=== PATIENT | female | born 1990 | race African-American/Black ===

== ENCOUNTER 2016-12-10 18:28 | Emergency (ER) | payer MEDICAID ==
[~2016-12-10] VITALS: Ht 170.2 cm; Wt 81.0 kg
[2016-12-10 18:29] VITALS: BP 164/96; PULSE 72; RESP 16; TEMP 97.9; O2SAT 98
[2016-12-10] MEDS ORDERED: KETOROLAC TROMETHAMINE 30 MG/ML (IVP) VIAL IV PUSH ONE (19:00)
[2016-12-10 19:07] LABS: AUTOMATED NEUTROPHIL # 2.5 TH/MM3 (1.8-7.7); BASOPHIL % 0.6 % (0.0-2.0); EOSINOPHIL % 0.7 % (0.0-4.0); HEMATOCRIT 34.8 % (35.0-46.0); HEMO FLAGS DIFF FINAL; LYMPH % 46.3 % (9.0-44.0); LYMPHOCYTE # 2.8 TH/MM3 (1.0-4.8); MEAN CELL VOLUME 87.5 FL (80.0-100.0); MEAN CORPUSCULAR HGB CONC 33.1 % (32.0-36.0); MONO % 11.5 % (0.0-8.0); NEUT % 40.9 % (16.0-70.0); PLATELET COUNT 168 TH/MM3 (150-450); RED BLOOD COUNT 3.98 MIL/MM3 (4.00-5.30); RED CELL DISTRIBUTION WIDTH 14.5 % (11.6-17.2); WHITE BLOOD COUNT 6.1 TH/MM3 (4.0-11.0)
[2016-12-10 19:31] LABS: ANION GAP 7 MEQ/L (5-15); AST (GOT) 26 U/L (15-37); BICARBONATE 26.7 MEQ/L (21.0-32.0); BLOOD UREA NITROGEN 12 MG/DL (7-18); CHLORIDE 105 MEQ/L (98-107); GLOMERULAR FILTRATION RATE 90 ML/MIN (>89); POTASSIUM 3.4 MEQ/L (3.5-5.1); SODIUM (NA) 139 MEQ/L (136-145)
[2016-12-10 19:36] LABS: ALKALINE PHOSPHATASE 57 U/L (45-117); ALT (GPT) 29 U/L (10-53); TOTAL BILIRUBIN ADULT 0.2 MG/DL (0.2-1.0)
--- NOTE | 2016-12-10 20:12 | RADRPT ---
EXAM DATE/TIME: 12/10/2016 19:25 [facility] COMPARISON: No previous studies available for comparison. INDICATIONS : Left sided chest pain. MEDICAL HISTORY : None. SURGICAL HISTORY : None. ENCOUNTER: Initial ACUITY: 2 weeks PAIN SCORE: 6/10 LOCATION: Left chest FINDINGS: PA and lateral views of the chest demonstrate the lungs to be symmetrically aerated without evidence of mass, infiltrate or effusion. The cardiomediastinal contours are unremarkable. Osseous structure s are intact. There is a thoracic dextroscoliosis. CONCLUSION: 1. No active disease. Thoracic dextroscoliosis. Skyler Gardner MD on December 10, 2016 at 20:09 Board Certified Radiologist. This report was verified electronically.
--- NOTE | 2016-12-10 20:20 | PD ---
HPI Chief Complaint: Chest Pain Time Seen by Provider: 18:40 Travel History International Travel<30 days: No Contact w/Intl Traveler<30days: No Traveled to known affect area: No History of Present Illness HPI Patient is a 26 year old female who comes in complaining of left sided chest pain. She says the pain has been coming and going for the past 2 weeks. She does report being sick with "flu-like symptoms" last week, but these have resolved. She has occasional cough. She denies fever or chills. She denies any shortness of breath. She says the symptoms seem to be coming on at work, but she can't really relate them to any sort of action. She denies any drug use , smoking, or family history of early cardiac . She says she is nervous because she has children. She denies any recent travel, leg pain or swelling. PFSH Past Medical History Medical History: Denies Significant Hx Diminished Hearing: No Tetanus Vaccination: > 5 Years Influenza Vaccination: No ?: Not LMP: 12/04/16 : 3 Past Surgical History Section: Yes Social History Alcohol Use: No Tobacco Use: No Substance Use: No Allergies-Medications (Allergen,Severity, Reaction): Coded Allergies: No Known Allergies (Unverified , 12/10/16) Reported Meds & Prescriptions Reported Meds & Active Scripts Active No Active Prescriptions or Reported Medications Review of Systems Except as stated in HPI: all other systems reviewed are Neg General / Constitutional: No: Fever, Chills HENT: No: Headaches, Lightheadedness Cardiovascular: Positive: Chest Pain or Discomfort Respiratory: Positive: Cough, No: Shortness of Breath Gastrointestinal: No: Nausea, Vomiting Musculoskeletal: No: Myalgias, Pain Skin: No Rash, No Change in Pigmentation Neurologic: No: Weakness, Dizziness Physical Exam Narrative GENERAL: Awake and alert, in no acute distress. SKIN: Focused skin assessment warm/dry. HEAD: Atraumatic. Normocephalic. EYES: Pupils equal and round. No scleral icterus. ENT: Mucous membranes pink and moist. NECK: Trachea midline. No JVD. CARDIOVASCULAR: Regular rate and rhythm. No murmur appreciated. RESPIRATORY: No accessory muscle use. Clear to auscultation. Breath sounds equal bilaterally. GASTROINTESTINAL: Abdomen soft, non-tender, nondistended. MUSCULOSKELETAL: No obvious deformities. No clubbing. No cyanosis. No edema. No calf tenderness. NEUROLOGICAL: Awake and alert. No obvious cranial nerve deficits. Motor grossly within normal limits. Normal speech. PSYCHIATRIC: Appropriate mood and affect; insight and judgment normal. Data Data Last Documented VS Vital Signs Date Time Temp Pulse Resp B/P Pulse Ox O2 Delivery O2 Flow Rate FiO2 12/10/16 18:51 90 16 99 Room Air 12/10/16 18:29 97.9 164/96 Orders Electrocardiogram (12/10/16 ) Complete Blood Count With Diff (12/10/16 18:53) Comprehensive Metabolic Panel (12/10/16 18:53) Troponin I (12/10/16 18:53) D-Dimer (12/10/16 18:53) Ed Urine Pregnancytest Poc (12/10/16 18:53) Chest, Pa & Lat (12/10/16 ) Ketorolac Inj (Toradol Inj) (12/10/16 19:00) Labs Laboratory Tests Test 12/10/16 19:00 White Blood Count 6.1 TH/MM3 Red Blood Count 3.98 MIL/MM3 Hemoglobin 11.5 GM/DL Hematocrit 34.8 % Mean Corpuscular Volume 87.5 FL Mean Corpuscular Hemoglobin 29.0 PG Mean Corpuscular Hemoglobin 33.1 % Concent Red Cell Distribution Width 14.5 % Platelet Count 168 TH/MM3 Mean Platelet Volume 11.5 FL Neutrophils (%) (Auto) 40.9 % Lymphocytes (%) (Auto) 46.3 % Monocytes (%) (Auto) 11.5 % Eosinophils (%) (Auto) 0.7 % Basophils (%) (Auto) 0.6 % Neutrophils # (Auto) 2.5 TH/MM3 Lymphocytes # (Auto) 2.8 TH/MM3 Monocytes # (Auto) 0.7 TH/MM3 Eosinophils # (Auto) 0.0 TH/MM3 Basophils # (Auto) 0.0 TH/MM3 CBC Comment DIFF FINAL Differential Comment D-Dimer Quantitative (PE/DVT) 0.37 MG/L FEU Sodium Level 139 MEQ/L Potassium Level 3.4 MEQ/L Chloride Level 105 MEQ/L Carbon Dioxide Level 26.7 MEQ/L Anion Gap 7 MEQ/L Blood Urea Nitrogen 12 MG/DL Creatinine 0.91 MG/DL Estimat Glomerular Filtration 90 ML/MIN Rate Random Glucose 75 MG/DL Calcium Level 9.1 MG/DL Total Bilirubin 0.2 MG/DL Aspartate Amino Transf 26 U/L (AST/SGOT) Alanine Aminotransferase 29 U/L (ALT/SGPT) Alkaline Phosphatase 57 U/L Troponin I LESS THAN 0.02 NG/ML Total Protein 8.4 GM/DL Albumin 3.7 GM/DL MDM Medical Decision Making Medical Screen Exam Complete: Yes Emergency Medical Condition: Yes Interpretation(s) ECG shows normal sinus rhythm at 90, nonspecific T-wave changes in lead 3 with T -wave inversions. No ST elevation or depression. Differential Diagnosis Pneumonia versus pneumothorax versus costochondritis versus bronchitis versus ACS (unlikely) Narrative Course Patient is a 26-year-old female who comes in complaining of left-sided chest pain on and off for 2 weeks. Exam shows no acute abnormalities. IV established , labs sent. Labs are within normal limits. Troponin and d-dimer are negative. ECG does not show any signs of ischemia. Patient has no risk factors for cardiac issues. Patient advised she should follow-up with her primary doctor. Advised she may need to see a statistical modeler for further testing if her pain persists. Advised it is very unlikely at this point that she is having a cardiac event. Advised that if her symptoms worsen at any time she should return to the ED. Patient is comfortable with this plan at this time. Advised to continue to refrain from any smoking or drug use. Diagnosis Primary Impression: Chest pain Qualified Code: R07.9 - Chest pain, unspecified type Patient Instructions: Costochondritis (ED), General Instructions Additional Instructions: Follow up with your primary doctor. If you have any worsening symptoms, return to the ED. You can take Ibuprofen for pain. Scripts No Active Prescriptions or Reported Meds Disposition: 01 DISCHARGE HOME Condition: Stable Edda Jerez MD Dec 10, 2016 20:20
--- NOTE | 2016-12-11 14:04 | EKG ---
Date Performed: 12/10/2016 Time Performed: 18:47:41 PTAGE: 26 years EKG: WITHIN NORMAL LIMITS NORMAL ECG NO PREVIOUS TRACING DOCTOR: Omari Casas Interpretating Date/Time 12/11/2016 14:04:09
== END 2016-12-10 21:02 | disposition home or self-care (01) ==
LOC: NEPD 18:28
DX: R07.9 Chest pain, unspecified (principal); R05 Cough
CPT/HCPCS: 71020; 80053; 84484; 84703; 85025; 85379; 93005; 96374; 99285; J1885

== ENCOUNTER 2017-02-20 | Emergency (ER) | payer MEDICAID ==
[~2017-02-20] VITALS: Ht 170.2 cm; Wt 90.0 kg
[2017-02-20 00:02] VITALS: BP 142/84; PULSE 96; RESP 16; TEMP 98.1; O2SAT 98
[2017-02-20] MEDS ORDERED: PREV15CA15 PO (02:32)
[2017-02-20] MEDS ORDERED: OMEP40CA2 PO (02:55)
--- NOTE | 2017-02-20 02:55 | PD ---
HPI Chief Complaint: ENT Complaint Time Seen by Provider: 02:30 Travel History International Travel<30 days: No Contact w/Intl Traveler<30days: No Traveled to known affect area: No History of Present Illness HPI Patient is a 27-year-old female presenting to emergency for evaluation of 1 week of dysphasia. Patient states that she is unable to swallow solid foods without drinking a lot of fluids. She has been eating soft foods since that time. She denies any sore throat, fever, chills, shortness of breath. She denies any alcohol use or indigestion. She has been tolerating fluids as well as soft foods. She went to an urgent care center yesterday and was told to take Prevacid follow-up with the GI doctor. [facility] Past Medical History Anemia: Yes Diminished Hearing: No Tetanus Vaccination: Unknown Influenza Vaccination: No ?: Not LMP: 01/28/19 : 3 Past Surgical History Section: Yes Social History Alcohol Use: No Tobacco Use: No Substance Use: No Allergies-Medications (Allergen,Severity, Reaction): Coded Allergies: No Known Allergies (Unverified , 12/10/16) Reported Meds & Prescriptions Reported Meds & Active Scripts Active Reported Prevacid (Lansoprazole) 15 Mg Capdr 15 Mg PO DAILY Review of Systems Except as stated in HPI: all other systems reviewed are Neg Gastrointestinal: Positive: Dysphagia Physical Exam Narrative GENERAL: Well-developed, well-nourished, alert female. Resting comfortably in no acute distress. SKIN: Focused skin assessment warm/dry. HEAD: Atraumatic. Normocephalic. EYES: Pupils equal and round. No scleral icterus. No injection or drainage. ENT: No nasal bleeding or discharge. Mucous membranes pink and moist. Airway is patent NECK: Trachea midline. No JVD. CARDIOVASCULAR: Regular rate and rhythm. No murmur appreciated. RESPIRATORY: No accessory muscle use. Clear to auscultation. Breath sounds equal bilaterally. No stridor noted, no wheezing, rhonchi, rales noted. GASTROINTESTINAL: Abdomen soft, non-tender, nondistended. Hepatic and splenic margins not palpable. MUSCULOSKELETAL: No obvious deformities. No clubbing. No cyanosis. No edema. NEUROLOGICAL: Awake and alert. No obvious cranial nerve deficits. Motor grossly within normal limits. Normal speech. PSYCHIATRIC: Appropriate mood and affect; insight and judgment normal. Data Data Last Documented VS Vital Signs Date Time Temp Pulse Resp B/P Pulse Ox O2 Delivery O2 Flow Rate FiO2 02/20/17 00:02 98.1 96 16 142/84 98 Room Air MDM Medical Decision Making Medical Screen Exam Complete: Yes Emergency Medical Condition: Yes Interpretation(s) Vital Signs Date Time Temp Pulse Resp B/P Pulse Ox O2 Delivery O2 Flow Rate FiO2 02/20/17 00:02 98.1 96 16 142/84 98 Room Air Differential Diagnosis Esophageal stricture versus GERD versus esophagitis versus other Narrative Course Patient is a 27-year-old female presenting with 1 week of dysphasia. She has no history of the same, no regular alcohol use, no tobacco use, no history of indigestion. His vital signs are stable, she is well oxygenated on room air. Physical examination is unremarkable, Hemoccult was negative for blood. Discussed with my attending physician patient's presentation as well as physical exam findings. Patient will be given prescription for omeprazole, she is encouraged to follow up with a GI doctor as previously recommended. She was given strict return precautions. Patient is agreeable to plan, she verbalizes understanding of discharge instructions as well as need for follow-up. Patient is stable for discharge. [facility] Point of Care Fecal Specimen Occult Blood: Negative Diagnosis Primary Impression: Other dysphagia Referrals: Care Assistant 2 days Patient Instructions: Dysphagia (ED), General Instructions Additional Instructions: Maintain a soft diet Follow-up with GI doctor Return to emergency department immediately for any new or worsening symptoms Med/Other Pt SpecificInfo: Prescription(s) given Scripts Omeprazole 40 Mg Cap40 Mg PO DAILY #30 CAP Ref 0 Prov:Chantelle Thompson 02/20/17 Disposition: 01 DISCHARGE HOME Condition: Stable Chantelle Thompson Feb 20, 2017 02:55
[2017-02-21] MEDS ORDERED: [UNRECOGNIZED DRUG - OTHER] (18:06)
== END 2017-02-20 03:23 | disposition home or self-care (01) ==
LOC: NEPD
DX: R47.02 Dysphasia (principal); D64.9 Anemia, unspecified; Z79.899 Other long term (current) drug therapy
CPT/HCPCS: 99283

== ENCOUNTER 2017-02-21 15:26 | Emergency (ER) | payer MEDICAID ==
[~2017-02-21] VITALS: Ht 205.7 cm; Wt 60.0 kg
[~2017-02-21 15:26] MED LIST: OMEP40CA2 PO; PREV15CA15 PO
[2017-02-21 15:33] VITALS: BP 148/86; PULSE 86; RESP 16; TEMP 98.3; O2SAT 100
--- NOTE | 2017-02-21 15:34 | PD ---
Physical Exam Date Seen by Provider: Feb 21, 2017 Time Seen by Provider: 15:32 MDM Supervised Visit with LENIN: No Narrative Course 27 YO F presents to the ED via EMS with complaint of 1 week history of dysphagia. Thinks that it is due to "bad hamburger." No difficulty breathing. Seen here 2 days ago for same. On cell phone the whole time en route per EMS report. Vitals reviewed. Patient seen in triage, awaiting bed placement. Park Diop Feb 21, 2017 15:34
--- NOTE | 2017-02-21 17:23 | PD ---
HPI Chief Complaint: GI Complaint Time Seen by Provider: 17:09 Travel History International Travel<30 days: No Contact w/Intl Traveler<30days: No Traveled to known affect area: No History of Present Illness HPI 27-year-old female here for evaluation of dysphasia for 1 week. The patient reports choking sensation when swallowing solid foods initially, now when swallowing her saliva. She feels as though there might be something in her throat. She denies throat pain. No respiratory difficulties. She was seen in the emergency department with the same complaint yesterday and discharged home with instructions to follow-up with GI. [facility] Past Medical History Anemia: Yes Diminished Hearing: No ?: Unknown : 3 Past Surgical History Section: Yes Social History Alcohol Use: No Tobacco Use: No Substance Use: No Allergies-Medications (Allergen,Severity, Reaction): Coded Allergies: No Known Allergies (Unverified , 02/21/17) Reported Meds & Prescriptions Reported Meds & Active Scripts Active Reported Feriva (Fe-Vit C-Foli-B12) 75-175-1 mg Cap Prevacid (Lansoprazole) 15 Mg Capdr 15 Mg PO DAILY Review of Systems Except as stated in HPI: all other systems reviewed are Neg Physical Exam Narrative GENERAL: Well-developed, well-nourished, comfortable, no acute distress. Taking sips of water from a water bottle. SKIN: Focused skin assessment warm/dry. HEAD: Atraumatic. Normocephalic. EYES: Pupils equal and round. No scleral icterus. No injection or drainage. ENT: Mucous membranes pink and moist. Normal pharynx. Uvula midline. No tonsillar hypertrophy. No drooling or stridor. NECK: Trachea midline. No JVD. No evidence of thyromegaly CARDIOVASCULAR: Regular rate and rhythm. RESPIRATORY: No accessory muscle use. Clear to auscultation. Breath sounds equal bilaterally. NEUROLOGICAL: Awake and alert. No obvious cranial nerve deficits. Motor grossly within normal limits. Normal speech. PSYCHIATRIC: Appropriate mood and affect; insight and judgment normal. Data Data Last Documented VS Vital Signs Date Time Temp Pulse Resp B/P Pulse Ox O2 Delivery O2 Flow Rate FiO2 02/21/17 15:33 98.3 86 16 148/86 100 Orders Barium Swallow (02/21/17 ) [facility] Medical Decision Making Medical Screen Exam Complete: Yes Emergency Medical Condition: Yes Differential Diagnosis Transfer dysphagia, esophageal foreign body, esophageal stricture, achalasia, mass Narrative Course Barium swallow study: FINDINGS: Air-contrast views of the hypopharynx demonstrate a normal mucosal surface without filling defect. Rapid sequence images of the hypopharynx and cervical esophagus during the passage of barium demonstrate a normal swallowing function. No evidence of aspiration. Multiphasic examination of the esophagus demonstrates no esophageal fold thickening, ulceration, or filling defect. The gastroesophageal junction is normal in configuration without evidence of hiatal hernia. The patient was given a 10 mm barium tablet which passed without difficulty. CONCLUSION: Negative exam. Patient was made aware of exam finding. She is extremely comfortable. Tolerating her secretions. She is also drinking water at the bedside without difficulty. At this point she is stable for discharge home and outpatient follow-up with a floor layer tile this week. She was informed on when to return to the emergency department. She verbalizes understanding and agreement with plan. Diagnosis Primary Impression: Other dysphagia Referrals: Fidel Oquendo MD 3 days Roll Reclaimer Primary Care Physician 3 days Additional Instructions: Follow-up with floor layer tile Dr. Oquendo or a floor layer tile of your choice this week. Follow-up with your primary care physician this week. Return to the emergency department for worsening symptoms or any other concerns. Disposition: 01 DISCHARGE HOME Condition: Stable Rober Beltre MD Feb 21, 2017 17:23
[2017-02-21] MEDS ORDERED: [UNRECOGNIZED DRUG - OTHER] (18:06)
--- NOTE | 2017-02-21 18:06 | RADRPT ---
EXAM DATE/TIME: 02/21/2017 17:43 [facility] COMPARISON: No previous studies available for comparison. INDICATIONS : Dysphagia of thickened liquids and solids. FLUORO TIME: 1.7 minutes IMAGE COUNT: 10 CONTRAST: 1. Liquid E-Z Paque Barium Sulfate (60% w/v, 41% w.w) MEDICAL HISTORY : None. SURGICAL HISTORY : None. ENCOUNTER: Initial ACUITY: 1 week PAIN SCORE: 0/10 LOCATION: esophagus. FINDINGS: Air-contrast views of the hypopharynx demonstrate a normal mucosal surface without filling defect. R apid sequence images of the hypopharynx and cervical esophagus during the passage of barium demonstra te a normal swallowing function. No evidence of aspiration. Multiphasic examination of the esophagu s demonstrates no esophageal fold thickening, ulceration, or filling defect. The gastroesophageal ju nction is normal in configuration without evidence of hiatal hernia. The patient was given a 10 mm ba rium tablet which passed without difficulty. CONCLUSION: Negative exam. Minesh Vogel MD on February 21, 2017 at 18:02 Board Certified Radiologist. This report was verified electronically.
== END 2017-02-21 19:20 | disposition home or self-care (01) ==
LOC: NEPD 15:26
DX: R13.10 Dysphagia, unspecified (principal)
CPT/HCPCS: 74230; 99283